=== PATIENT | female | born 1990 | race Caucasian/White ===

== ENCOUNTER 2019-03-03 07:46 | Outpatient (CLI) | payer SELFPAY ==
[2019-03-03] MEDS ORDERED: LIDOCAINE 1%-EPI 1:100K, 20ML ONE (08:00)
[2019-03-03] MEDS ORDERED: LIDOCAINE 1%, 20ML ONE (08:00)
[2019-03-03] MEDS ORDERED: SODIUM BICARBONATE 4.2%, 5ML ONE (08:00)
== END 2019-03-03 23:59 | disposition home or self-care (01) ==
LOC: CFH 07:46
PROVIDERS: ATTEND Nurse Practitioner Family
DX: N63.11 Unspecified lump in the right breast, upper outer quadrant (principal)
CPT/HCPCS: 19083; 77065; 88305; 88333; J3490

== ENCOUNTER → 2019-04-01 | Outpatient (CLI) | payer SELFPAY ==
[~2019-04-01] MED LIST: LIDOCAINE 1%, 20ML ONE; LIDOCAINE 1%-EPI 1:100K, 20ML ONE; SODIUM BICARBONATE 4.2%, 5ML ONE
== END | disposition home or self-care (01) ==
LOC: CFH 07:37
PROVIDERS: ATTEND Surgery
DX: N62 Hypertrophy of breast (principal); F17.210 Nicotine dependence, cigarettes, uncomplicated; Z87.39 Personal history of other diseases of the musculoskeletal system and connective tissue; Z86.73 Personal history of transient ischemic attack (TIA), and cerebral infarction without residual deficits; Z90.710 Acquired absence of both cervix and uterus; Z98.890 Other specified postprocedural states; Z88.8 Allergy status to other drugs, medicaments and biological substances; Z91.030 Bee allergy status; Z91.040 Latex allergy status
CPT/HCPCS: 19281; J3490

== ENCOUNTER 2019-04-04 06:07 | Day surgery (SDC) | payer SELFPAY ==
[~2019-04-04] VITALS: Ht 157.5 cm; Wt 64.0 kg
[2019-04-04] MEDS ORDERED: BUPIVACAINE/PF 0.5% ONE ×2 (06:49→08:51)
[2019-04-04] MEDS ORDERED: EPINEPHRINE 1 MG/ML, 1ML ONE (06:49)
[2019-04-04] MEDS ORDERED: MIDAZOLAM 1 MG/ML, 2ML ONE (07:46)
[2019-04-04] MEDS ORDERED: FENTANYL PF 100 MCG/2ML ONE ×2 (07:46→09:32)
[2019-04-04 07:55] VITALS: BP 111/63
[2019-04-04] MEDS ORDERED: LACTATED RINGERS 1,000 ML IV SCH (08:14)
[2019-04-04] MEDS ORDERED: CEFAZOLIN 1,000 MG ONE (08:40)
[2019-04-04] MEDS ORDERED: ONDANSETRON 2MG/ML, 2ML ONE (08:40)
[2019-04-04] MEDS ORDERED: PROPOFOL 10 MG/ML, 20ML ONE (08:40)
[2019-04-04] MEDS ORDERED: DEXAMETHASONE 4 MG/ML, 1ML ONE (08:40)
[2019-04-04] MEDS ORDERED: KETOROLAC 30 MG/1 ML IV PRN ×3 (09:00)
[2019-04-04] MEDS ORDERED: LABETALOL 5MG/ML, 20ML IV PRN ×3 (09:00)
[2019-04-04] MEDS ORDERED: ALBUTEROL SULFATE 2.5 MG/3 ML NPPB PRN ×3 (09:00)
[2019-04-04] MEDS ORDERED: MEPERIDINE/PF 25MG/0.5ML IVPush PRN ×3 (09:00)
[2019-04-04] MEDS ORDERED: hydrALAzine 20 MG/ML, 1ML IV PRN ×3 (09:00)
[2019-04-04] MEDS ORDERED: ACETAMINOPHEN 325 MG TABLET PO PRN ×3 (09:00)
[2019-04-04] MEDS ORDERED: OXYcodone 5 MG/5 ML ORAL.SOL UDC PO PRN ×3 (09:00)
[2019-04-04] MEDS ORDERED: PROMETHAZINE 25 MG/ML, 1ML IV PRN ×3 (09:00)
[2019-04-04] MEDS ORDERED: DIAZEPAM 5 MG/ML, 2ML IVPush PRN ×3 (09:00)
[2019-04-04] MEDS ORDERED: HYDROmorphone 2 MG/ML, 1ML IVPush PRN ×3 (09:00)
[2019-04-04] MEDS ORDERED: FENTANYL PF 100 MCG/2ML IV PRN ×2 (09:00)
[2019-04-04] MEDS: FENTANYL PF 100 MCG/2ML IV PRN ×2 (09:29→09:43)
[2019-04-04] MEDS ORDERED: OXYcodone 5 MG/5 ML ORAL.SOL UDC ONE (09:32)
[2019-04-04] MEDS ORDERED: KETOROLAC 30 MG/1 ML ONE (09:39)
== END 2019-04-04 11:15 | disposition home or self-care (01) ==
LOC: OR 06:07
PROVIDERS: ATTEND Surgery
DX: N64.89 Other specified disorders of breast (principal); F17.210 Nicotine dependence, cigarettes, uncomplicated; Z88.8 Allergy status to other drugs, medicaments and biological substances; Z91.040 Latex allergy status; Z91.030 Bee allergy status; Z90.710 Acquired absence of both cervix and uterus; Z98.890 Other specified postprocedural states; Z80.3 Family history of malignant neoplasm of breast; Z80.41 Family history of malignant neoplasm of ovary
CPT/HCPCS: 19125; 76098; 88305; 88341; 88342; J0171; J0690; J1100; J1885; J2250; J2405; J2704; J3010

== ENCOUNTER 2019-04-10 19:35 | Emergency (ER) | payer SELFPAY ==
[~2019-04-10] VITALS: Ht 157.5 cm; Wt 53.9 kg
--- NOTE | 2019-04-10 19:57 | NUR ---
first contact with pt. Agnesx on R breast (incisional biopsy) 04 April. States R breast "tripled in size." and is tender to touch today due to dogs bumped R breast. pt's aox4. resps even and unlabored. pt denies n/v/d at this time. bp/spo2 monitors in place.
[2019-04-10] MEDS ORDERED: IBUPROFEN 800 MG TABLET ONE (20:25)
--- NOTE | 2019-04-10 20:27 | NUR ---
PT MEDICATED PER EMAR. PT TOLERATED WELL.
[2019-04-10] MEDS ORDERED: IBUPROFEN 800 MG TABLET PO ONE (20:30)
[2019-04-10 21:36] VITALS: BP 111/63
--- NOTE | 2019-04-10 21:36 | NUR ---
pt resting in [facility]. pt's aox4. resps even and unlabored. bp/spo2 monitors in place. call light within reach.
--- NOTE | 2019-04-10 21:46 | NUR ---
PT GIVEN DC INSTRUCTIONS AND SCRIPTS. PT EDUCATED REGARDING DC MEDICTAIONS. PT'S AOX4. RESPS EVEN AND UNLABORED. NO ACUTE DISTRESS AT DC.
== END 2019-04-10 21:47 | disposition home or self-care (01) ==
LOC: ED 19:55
DX: N61.0 Mastitis without abscess (principal); F17.210 Nicotine dependence, cigarettes, uncomplicated
CPT/HCPCS: 93005; 99284

== ENCOUNTER 2019-12-04 12:40 | Emergency (ER) | payer MEDICAID ==
[~2019-12-04] VITALS: Ht 157.5 cm; Wt 51.8 kg
--- NOTE | 2019-12-04 14:06 | NUR ---
MATH PROFESSOR: PT TO ROOM VIA WHEELCHAIR FROM JOELLE
--- NOTE | 2019-12-04 14:11 | NUR ---
FIRST CONTACT WITH PT. PT C/O ABD PAIN/VOMITING GREEN BILE/DIARRHEA, ALSO CONCERNED WITH HX MASTECTOMY R BREAST NOW HAS L BREAST LUMP. PT'S AOX4. RESPS EVEN AND UNLABORED. BP/SPO2 MONITORS IN PLACE. CALL LIGHT WITHIN REACH.
[2019-12-04] MEDS ORDERED: MORPHINE SULFATE 4 MG/ML, 1ML IVPush PRN (15:00)
[2019-12-04] MEDS ORDERED: ONDANSETRON 2MG/ML, 2ML IVPush ONE (15:00)
[2019-12-04] MEDS ORDERED: SODIUM CHLORIDE 0.9% 1,000ML IVBOLUS ONE (15:00)
[2019-12-04] MEDS ORDERED: SODIUM CHLORIDE FLUSH 10ML SYR IVF ONE (15:00)
--- NOTE | 2019-12-04 15:00 | NUR ---
pt amb to br and back to room with steady gait. ua sent.
[2019-12-04 15:04] VITALS: BP 103/56
--- NOTE | 2019-12-04 15:04 | NUR ---
PIV EST ON L AC. PT TOLERATED WELL. NS INFUSING AT THIS TIME.
[2019-12-04] MEDS ORDERED: MORPHINE SULFATE 4 MG/ML, 1ML ONE (15:15)
[2019-12-04] MEDS ORDERED: ONDANSETRON 2MG/ML, 2ML ONE (15:15)
[2019-12-04 15:20] LABS: ALANINE AMINOTRANSFERASE 30 U/L (12-78); ALBUMIN 4.3 g/dL (3.4-5.0); ANION GAP 5 mmol/L (5-15); CHLORIDE 104 mmol/L (98-107)
--- NOTE | 2019-12-04 15:20 | NUR ---
PT MEDICATED PER EMAR. PT TOLERATED WELL.
[2019-12-04 15:23] LABS: ALKALINE PHOSPHATASE 46 U/L (45-117); BILIRUBIN,TOTAL 0.5 mg/dL (0.2-1.0); CREATININE 0.91 mg/dL (0.55-1.02); TOTAL PROTEIN 8.1 g/dL (6.4-8.2)
[2019-12-04 15:31] LABS: MICROSCOPIC NOT IND
[2019-12-04 15:36] LABS: CULTURE INDICATED? NO
[2019-12-04 16:08] LABS: BASOPHILS # (AUTO) 0.02 x10^3/uL (0-0.1); BASOPHILS % (AUTO) 0 % (0-1); EOSINOPHILS # (AUTO) 0.14 x10^3/uL (0-0.4); EOSINOPHILS % (AUTO) 1 % (1-7); LYMPHOCYTES # (AUTO) 1.53 x10^3/uL (1-3.4); LYMPHOCYTES % (AUTO) 11 % (22-44); MD NO; MEAN CORPUSCULAR HEMOGLOBIN 29.3 pg (27.0-34.8); MEAN CORPUSCULAR VOLUME 88.7 fL (80-100); MEAN PLATELET VOLUME 8.6 fL (7.4-10.4); MONOCYTES # (AUTO) 0.69 x10^3/uL (0.2-0.8); MONOCYTES % (AUTO) 5 % (2-9); NEUTROPHILS # (AUTO) 11.85 x10^3/uL (1.8-6.8); NEUTROPHILS % (AUTO) 83 % (42-75); PLATELET COUNT 311 x10^3/uL (130-400); RED BLOOD COUNT 5.41 x10^6/uL (3.82-5.3); RED CELL DISTRIBUTION WIDTH 14.2 % (9.6-15.2)
--- NOTE | 2019-12-04 16:18 | NUR ---
PT IN CT AT THIS TIME.
--- NOTE | 2019-12-04 17:14 | NUR ---
Patient given discharge instructions and they have confirmed that they understand the instructions. Patient ambulatory with steady gait.
[2019-12-04] MEDS ORDERED: OMNIPAQUE 350 MG/ML, 100ML BOTTLE ONE (18:01)
== END 2019-12-04 17:15 | disposition home or self-care (01) ==
LOC: ED 13:00
DX: N63.20 Unspecified lump in the left breast, unspecified quadrant (principal); A08.4 Viral intestinal infection, unspecified; F17.200 Nicotine dependence, unspecified, uncomplicated; R11.2 Nausea with vomiting, unspecified; R19.7 Diarrhea, unspecified; Z90.710 Acquired absence of both cervix and uterus
CPT/HCPCS: 36415; 74177; 80053; 81003; 83605; 83690; 85025; 96361; 96374; 96375; 99285; J2270; J2405; J7030; Q9967

== ENCOUNTER → 2020-01-24 | Outpatient (CLI) | payer MEDICAID | END | disposition home or self-care (01) | LOC: CFH 14:39 | PROVIDERS: ATTEND Emergency Medicine | DX: N63.0 Unspecified lump in unspecified breast (principal); R92.2 Inconclusive mammogram | CPT/HCPCS: 76642; 77066; G0279 ==

== ENCOUNTER 2020-06-25 02:44 | Emergency (ER) | payer MEDICAID ==
[~2020-06-25] VITALS: Ht 157.5 cm; Wt 53.0 kg
--- NOTE | 2020-06-25 03:30 | NUR ---
assumed care of pt. pt here c/o L knee pain after a fall while walking her dog tonight. pt reports that she tripped over her dog and fell. no head injury no LOC. pt is ambulatory and CMS of LLE intact. pt is curretnly sitting up on [employer] texting on cell phone. no family at bedside
--- NOTE | 2020-06-25 04:00 | NUR ---
tech has been to bedside for knee immobilizer placement
[2020-06-25 04:22] VITALS: BP 119/61
== END 2020-06-25 04:30 | disposition home or self-care (01) ==
LOC: ED 04:06
DX: S83.92XA Sprain of unspecified site of left knee, initial encounter (principal); X58.XXXA Exposure to other specified factors, initial encounter; Y93.89 Activity, other specified; Y92.009 Unspecified place in unspecified non-institutional (private) residence as the place of occurrence of the external cause; Y99.8 Other external cause status
CPT/HCPCS: 29505; 99283

== ENCOUNTER 2021-05-04 15:53 | Emergency (ER) | payer MEDICAID ==
[~2021-05-04] VITALS: Ht 157.5 cm; Wt 54.0 kg
[2021-05-04 16:00] VITALS: BP 108/45
--- NOTE | 2021-05-04 17:30 | NUR ---
in room to discharge pt. per md pt deferred renetta moralese. upon educating pt and discharging pt requests shoe. md made aware and shoe ordered. pt expresses to this rn that she doesn't understand why we can't just put her in a cast. pt educated on risks and indications of a cast and at this time the md does not feel a cast or splint is indicated.
== END 2021-05-04 18:01 | disposition home or self-care (01) ==
LOC: ED 17:06
DX: S90.31XA Contusion of right foot, initial encounter (principal); F17.200 Nicotine dependence, unspecified, uncomplicated; X58.XXXA Exposure to other specified factors, initial encounter; Y93.89 Activity, other specified; Y92.89 Other specified places as the place of occurrence of the external cause; Y99.8 Other external cause status
CPT/HCPCS: 99283